=== PATIENT | female | born 1985 | race Caucasian/White ===

== ENCOUNTER 2016-06-07 14:18 | Emergency (ER) | payer OTHER ==
[2016-06-07 14:41] VITALS: BP 119/63
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
== END 2016-06-07 17:29 | disposition home or self-care (01) ==
LOC: UCCORT 14:18
DX: M54.12 Radiculopathy, cervical region (principal); F12.90 Cannabis use, unspecified, uncomplicated; Z87.891 Personal history of nicotine dependence
CPT/HCPCS: 99212; G0463

== ENCOUNTER 2016-09-23 09:05 | Emergency (ER) | payer OTHER ==
[2016-09-23 09:40] VITALS: BP 145/78
--- NOTE | 2016-09-23 10:08 | UC ---
Neck Pain HPI - HPI Summary HPI Summary: left side neck pain x 5 days sharp shooting pain , pain radiates to her right shoulder down to her right arm , + numbness and tingling no known injury - History of Current Complaint Chief Complaint: UCUpperExtremity Stated Complaint: RIGHT ARM PAIN Time Seen by Provider: 09/23/16 09:50 Hx Obtained From: Patient Hx Last Menstrual Period: 09/19/16 Timing: Constant Onset/Duration: Gradual Onset, Lasting Days - 5, Still Present Severity: Severe Location: Discrete At: - right neck , right shoulder and right arm Character: Sharp, Aching, Stiff, Spasmotic, Throbbing Aggravating Factors: Position Alleviating Factors: Nothing Associated Signs & Symptoms: Positive: Paresthesia. Negative: Negative, Swelling, Redness, Bruising, Fever, Nuchal Rigity, Weakness, Headache - Allergies/Home Medications Allergies/Adverse Reactions: Allergies Allergy/AdvReac Type Severity Reaction Status Date / Time No Known Allergies Allergy Verified 09/23/16 09:25 Home Medications: Home Medications Gabapentin CAP(*) [Neurontin 100 mg CAP(*)] 100 mg PO TID 09/23/16 [History Confirmed 09/23/16] Hydrocodone/APAP 5/300 (NF) [Vicodin 5 MG/300 MG(NF)] 1 tab PRN 09/23/16 [ History] Ibuprofen TAB* [Motrin TAB* 600 MG] 600 mg Q6HR PRN 09/23/16 [History Confirmed 09/23/16] ValACYclovir (*) [Valtrex 1 GM(*)] 1 gm PO DAILY 09/23/16 [History Confirmed 10/04] metFORMIN* [Glucophage 500 MG TAB *] 500 mg PO BID 09/23/16 [History Confirmed 09/23/16] traMADol TAB* [Ultram*] 50 mg BEDTIME 09/23/16 [History Confirmed 09/23/16] PMH/Surg Hx/FS Hx/Imm Hx Other History Of: Negative For: HIV, Hepatitis B, Hepatitis C - Surgical History Surgical History: Yes Surgery Procedure, Year, and Place: c section 02/01/13, right oopherectomy 2004 Other Surgical History: pilonidal cyst - Family History Known Family History: Positive: Hypertension, Diabetes Negative: Renal Disease, Blood Disorder - Social History Alcohol Use: None Substance Use Type: Marijuana Substance Use Comment - Amount & Last Used: 09/23/16 Smoking Status (MU): Former Smoker Type: Cigarettes Amount Used/How Often: 1 PPD Length of Time of Smoking/Using Tobacco: 17 Years Have You Smoked in the Last Year: Yes Household Exposure Type: Cigarettes - Immunization History Most Recent Influenza Vaccination: NONE Most Recent Tetanus Shot: UTD Most Recent Pneumonia Vaccination: N/A Review Of Systems Constitutional: Positive: Negative Skin: Positive: Negative Eyes: Positive: Negative ENT: Positive: Negative Respiratory: Positive: Negative Cardiovascular: Positive: Negative Neurological: Positive: Paresthesia - right arm All Other Systems Reviewed And Are Negative: Yes Physical Exam Triage Information Reviewed: Yes Appearance: Well-Appearing, Well-Nourished, Pain Distress Vital Signs: Initial Vital Signs Temp 99 F 09/23/16 09:30 Pulse 90 09/23/16 09:30 Resp 18 09/23/16 09:30 BP 145/78 09/23/16 09:30 Pulse Ox 99 09/23/16 09:30 Vital Signs Reviewed: Yes Eyes: Positive: Conjunctiva Clear ENT: Positive: Normal ENT inspection, Hearing grossly normal, Pharynx normal Neck: Positive: Tenderness @, Other: - decrease ROM on rotation to right Respiratory: Positive: Chest non-tender, Lungs clear, Normal breath sounds Cardiovascular: Positive: RRR, No Murmur, Pulses Normal Musculoskeletal: Positive: Strength Intact, ROM Intact, No Edema Neurological: Positive: Alert Neck Pain Course/Dx - Differential Dx/Diagnosis Provider Diagnoses: THORACIC OUTLET SYNDROME Discharge - Discharge Plan Condition: Stable Disposition: HOME Prescriptions: Naproxen [Naproxen DR 500 MG TAB] 500 mg PO BID #30 tab Patient Education Materials: Thoracic Outlet Syndrome (ED) Referrals: DOUGLAS Hensley [Primary Care Provider] - 7 Days Additional Instructions: rest , heating pads physical therapy 3 x per week x 4 weeks cont. with flexeril and naproxen 2 x per day
== END 2016-09-23 10:08 | disposition home or self-care (01) ==
LOC: UCCORT 09:05
DX: G54.0 Brachial plexus disorders (principal); F12.90 Cannabis use, unspecified, uncomplicated; Z87.891 Personal history of nicotine dependence
CPT/HCPCS: 99212; G0463

== ENCOUNTER 2017-09-13 12:00 | Emergency (ER) | payer OTHER ==
[2017-09-13 12:37] VITALS: BP 113/65
--- NOTE | 2017-09-13 12:50 | UC ---
Complaint Female HPI - HPI Summary HPI Summary: Patient is currently changing sexual partners and wishes to have HIV testing prior. Has a known history of genital herpes does occasionally get outbreaks does not take her preventative Valtrex - History Of Current Complaint Chief Complaint: UCSTDScreening Stated Complaint: PERSONAL Time Seen by Provider: 09/13/17 12:32 Hx Obtained From: Patient Hx Last Menstrual Period: 08/30/17 ?: No Pain Intensity: 0 Pain Scale Used: 0-10 Numeric - Allergies/Home Medications Allergies/Adverse Reactions: Allergies Allergy/AdvReac Type Severity Reaction Status Date / Time No Known Allergies Allergy Verified 09/13/17 12:34 Home Medications: Home Medications Oxybutynin TAB* [Ditropan TAB*] 5 mg PO TID 09/13/17 [History Confirmed 09/13/17 ] PARoxetine HCL TAB* [Paxil TAB*] 10 mg PO DAILY 09/13/17 [History Confirmed ] PMH/Surg Hx/FS Hx/Imm Hx Previously Healthy: No Psychological History: Anxiety Other History Of: Negative For: HIV, Hepatitis B, Hepatitis C - Surgical History Surgical History: Yes Surgery Procedure, Year, and Place: c section 02/01/13, right oopherectomy 2004 Other Surgical History: pilonidal cyst - Family History Known Family History: Positive: Hypertension, Diabetes Negative: Renal Disease, Blood Disorder - Social History Occupation: Unemployed Lives: With Family Alcohol Use: Occasionally Substance Use Type: Marijuana Substance Use Comment - Amount & Last Used: daily Smoking Status (MU): Heavy Every Day Tobacco Smoker Type: Cigarettes Amount Used/How Often: 1 PPD Length of Time of Smoking/Using Tobacco: 17 Years Have You Smoked in the Last Year: Yes Household Exposure Type: Cigarettes - Immunization History Most Recent Influenza Vaccination: NONE Most Recent Tetanus Shot: UTD Most Recent Pneumonia Vaccination: N/A Review of Systems Constitutional: Negative Skin: Negative Eyes: Negative ENT: Negative Respiratory: Negative Cardiovascular: Negative Gastrointestinal: Negative Genitourinary: Negative Motor: Negative Neurovascular: Negative Musculoskeletal: Negative Neurological: Negative Psychological: Negative Is Patient Immunocompromised?: No All Other Systems Reviewed And Are Negative: Yes Physical Exam Triage Information Reviewed: Yes Appearance: Well-Appearing, No Pain Distress, Well-Nourished Vital Signs: Initial Vital Signs Temp 97.6 F 09/13/17 12:31 Pulse 57 09/13/17 12:31 Resp 16 09/13/17 12:31 BP 113/65 09/13/17 12:31 Pulse Ox 100 09/13/17 12:31 Vital Signs Reviewed: Yes Eye Exam: Normal Eyes: Positive: Conjunctiva Clear ENT Exam: Normal ENT: Positive: Normal ENT inspection, Hearing grossly normal. Negative: Trismus , Muffled voice, Hoarse voice Dental Exam: Normal Neck exam: Normal Neck: Positive: Supple, Nontender, No Lymphadenopathy Respiratory Exam: Normal Respiratory: Positive: Chest non-tender, No respiratory distress, No accessory muscle use Cardiovascular Exam: Normal Cardiovascular: Positive: RRR, Pulses Normal, Brisk Capillary Refill Abdominal Exam: Normal Abdomen Description: Positive: Nontender, No Organomegaly, Soft. Negative: CVA Tenderness (R), CVA Tenderness (L) Bowel Sounds: Positive: Present Pelvic Exam: Positive: External Exam Normal, Speculum Exam Normal. Negative: No Cerv. Motion Tender, No Masses, Active Bleeding, Blood Musculoskeletal Exam: Normal Musculoskeletal: Positive: Strength Intact, ROM Intact, No Edema Neurological Exam: Normal Neurological: Positive: Alert, Muscle Tone Normal Psychological Exam: Normal Psychological: Positive: Normal Response To Family Skin Exam: Normal Complaint Female Dx - Course Course Of Treatment: We will call you if any B test results require treatment. She call us in 3-5 days for the test results just for completeness. Please continue to use a condom. I would encourage her to use her Valtrex regularly to help decrease outbreaks in the chance of spreading virus - Differential Dx/Diagnosis Provider Diagnoses: Possible STD exposure Discharge - Sign-Out/Discharge Documenting (check all that apply): Discharge/Admit/Transfer - Discharge Plan Condition: Stable Disposition: HOME Patient Education Materials: Safe Sex (ED) Referrals: DOUGLAS Hensley [Primary Care Provider] - If Needed Additional Instructions: Lily, We will call you if any of your test results are positive, that means needs treatment. You can call us in 3-5 days for your test results. Follow-up with your regular [facility] DIPPER for routine Pap smears and return for any problems. - Billing Disposition and Condition Condition: STABLE Disposition: HOME
--- NOTE | 2017-09-16 08:01 | UC ---
- Progress Note Progress Note: Positive Gardnerella. I have sent Rx for flagyl 500mg po bid. Discharge - Sign-Out/Discharge Documenting (check all that apply): Post-Discharge Follow Up - Discharge Plan Condition: Stable Disposition: HOME Patient Education Materials: Safe Sex (ED) Referrals: DOUGLAS Hensley [Primary Care Provider] - If Needed Additional Instructions: Lily, We will call you if any of your test results are positive, that means needs treatment. You can call us in 3-5 days for your test results. Follow-up with your regular [employer]CH[employer] for routine Pap smears and return for any problems. - Billing Disposition and Condition Condition: STABLE Disposition: HOME
== END 2017-09-13 13:16 | disposition home or self-care (01) ==
LOC: UCCORT 12:00
DX: Z11.4 Encounter for screening for human immunodeficiency virus [HIV] (principal); N76.0 Acute vaginitis; B96.89 Other specified bacterial agents as the cause of diseases classified elsewhere; F41.9 Anxiety disorder, unspecified; F17.210 Nicotine dependence, cigarettes, uncomplicated
CPT/HCPCS: 36415; 81003; 84702; 86592; 86703; 86706; 86803; 87340; 87480; 87491; 87510; 87591; 87661; 99212; G0463

== ENCOUNTER 2017-09-30 11:18 | Emergency (ER) | payer OTHER ==
[2017-09-30 11:31] VITALS: BP 124/70
--- NOTE | 2017-09-30 11:55 | RAD ---
HISTORY: fevers, cough, 10 days, eval for pneumonia. COMPARISONS: None VIEWS: 4: Frontal dual-energy and lateral views of the chest. FINDINGS: CARDIOMEDIASTINAL SILHOUETTE: The cardiomediastinal silhouette is normal. AIRAM: The airam are normal. PLEURA: The costophrenic angles are sharp. No pleural abnormalities are noted. LUNG PARENCHYMA: The lungs are clear. ABDOMEN: The upper abdomen is clear. There is no subphrenic gas. BONES AND SOFT TISSUES: No bone or soft tissue abnormalities are noted. OTHER: None. IMPRESSION: NO ACTIVE CARDIOPULMONARY DISEASE.
--- NOTE | 2017-09-30 11:56 | UC ---
Respiratory Complaint HPI - HPI Summary HPI Summary: This started with Sore throat and has turned into cough and congestion. She says it is dry. There have been scatterred fevers. No hemoptysis. No known lung disease except childhood asthma. - History of Current Complaint Chief Complaint: UCRespiratory Stated Complaint: RUNNY NOSE/SINUS/COUGH Time Seen by Provider: 09/30/17 11:26 Hx Obtained From: Patient Hx Last Menstrual Period: 09/23/17 Onset/Duration: Gradual Onset, Lasting Days Timing: Constant Severity Initially: Moderate Severity Currently: Moderate Pain Intensity: 2 Character: Cough: Nonproductive Aggravating Factors: Deep Breaths, Recumbent Position Alleviating Factors: Upright Position, Spontaneous Resolution Associated Signs And Symptoms: Positive: Dyspnea, Fever, URI, Nasal Congestion. Negative: Calf Pain, Calf Swelling - Allergies/Home Medications Allergies/Adverse Reactions: Allergies Allergy/AdvReac Type Severity Reaction Status Date / Time No Known Allergies Allergy Verified 09/13/17 12:34 Home Medications: Home Medications Ibuprofen 1,000 mg PO Q8HR 09/30/17 [History Confirmed 09/30/17] PMH/Surg Hx/FS Hx/Imm Hx Previously Healthy: No - smoker. Other History Of: Negative For: HIV, Hepatitis B, Hepatitis C - Surgical History Surgical History: Yes Surgery Procedure, Year, and Place: c section 02/01/13, right oopherectomy 2004 Other Surgical History: pilonidal cyst - Family History Known Family History: Positive: Hypertension, Diabetes Negative: Renal Disease, Blood Disorder - Social History Alcohol Use: None Substance Use Type: Marijuana Substance Use Comment - Amount & Last Used: OCCASSIONALLY, 09/28/17 Smoking Status (MU): Heavy Every Day Tobacco Smoker Type: Cigarettes Amount Used/How Often: 1 PPD Length of Time of Smoking/Using Tobacco: 17 Years Have You Smoked in the Last Year: Yes Household Exposure Type: Cigarettes - Immunization History Most Recent Influenza Vaccination: NONE Most Recent Tetanus Shot: UTD Most Recent Pneumonia Vaccination: N/A Review of Systems ENT: Sore Throat, Sinus Congestion Respiratory: Cough All Other Systems Reviewed And Are Negative: Yes Physical Exam Triage Information Reviewed: Yes Appearance: Well-Appearing - Non toxic. Occassional dry cough., No Pain Distress , Well-Nourished Vital Signs: Initial Vital Signs Temp 97.8 F 09/30/17 11:26 Pulse 89 09/30/17 11:26 Resp 17 09/30/17 11:26 BP 124/70 09/30/17 11:26 Pulse Ox 100 09/30/17 11:26 Vital Signs Reviewed: Yes Eyes: Positive: Conjunctiva Clear ENT: Positive: Normal ENT inspection, Pharynx normal, Nasal congestion, TMs normal, Uvula midline. Negative: TM bulging, TM dull, TM red, Tonsillar swelling, Tonsillar exudate, Trismus, Muffled voice, Sinus tenderness Neck: Positive: Supple, Nontender, No Lymphadenopathy Respiratory: Positive: Chest non-tender, Lungs clear, Normal breath sounds, No respiratory distress, No accessory muscle use, Wheezing - scatterred wheezing throughout.. Negative: Respiratory distress, Decreased breath sounds, Accessory muscle use, Crackles, Rhonchi, Stridor Cardiovascular: Positive: No Murmur, Pulses Normal, Brisk Capillary Refill Abdomen Description: Positive: No Organomegaly, Soft. Negative: Distended, Guarding Musculoskeletal: Positive: Strength Intact, ROM Intact, No Edema Neurological: Positive: Alert, Muscle Tone Normal. Negative: Fatigued Psychological: Positive: Age Appropriate Behavior Skin: Negative: rashes UC Diagnostic Evaluation - Laboratory O2 Sat by Pulse Oximetry: 100 Respiratory Course/Dx - Course Course Of Treatment: No signs of pneumonia. X ray reviewed and normal. This is c /w reactive airway disease. - Differential Dx/Diagnosis Provider Diagnoses: acute bronchitis. URI. Discharge - Sign-Out/Discharge Documenting (check all that apply): Discharge/Admit/Transfer - Discharge Plan Condition: Good Disposition: HOME Prescriptions: Albuterol Sulfate [Proventil Hfa] 6.7 gm IH Q2HR PRN #1 [email or web address] PRN Reason: Cough Azithromyxin QUAN (NF) [Z-Quan (Zithromax) 250 mg tabs #6] 2 tab PO .TODAY, THEN 1 DAILY #6 tab GuaiFENesin DM* [Robitussin DM*] 10 ml PO Q6H PRN #120 ml PRN Reason: Cough methylPREDNISolone [Medrol Dosepak 4 MG*] 4 mg PO .SEE QUAN INSTRUCTION #21 tab Patient Education Materials: Upper Respiratory Infection (ED) Referrals: DOUGLAS Hensley [Primary Care Provider] - Additional Instructions: Start the medrol dose pack, cough medicine and inhaler. This should make you better. If not, somewhat better in 4 days then start z pack. - Billing Disposition and Condition Condition: GOOD Disposition: Home
== END 2017-09-30 11:54 | disposition home or self-care (01) ==
LOC: UCCORT 11:18
DX: J20.9 Acute bronchitis, unspecified (principal); J06.9 Acute upper respiratory infection, unspecified; F17.210 Nicotine dependence, cigarettes, uncomplicated
CPT/HCPCS: 71046; 99212; G0463

== ENCOUNTER 2017-10-22 20:07 | Emergency (ER) | payer OTHER ==
[2017-10-22 20:21] VITALS: BP 122/67
[2017-10-22] MEDS ORDERED: traMADol TAB* 50 MG PO ONE (20:53)
--- NOTE | 2017-10-22 20:55 | UC ---
Shoulder Pain HPI - HPI Summary HPI Summary: acute exacerbation of chronic right shoulder pain---has a dx of thoracic outlet syndrome, stopped taking gabapentin because arm was feeling better---has an appointment with Dr. Tucker on October 30, 2017 - History of Current Complaint Chief Complaint: UCUpperExtremity Stated Complaint: RIGHT ARM PAIN Time Seen by Provider: 10/22/17 20:41 Hx Obtained From: Patient Hx Last Menstrual Period: 10/08/17 ?: No Onset/Duration: Sudden Onset, Lasting Weeks, Worse Since - past couple of days Timing: Constant Pain Intensity: 6 Pain Scale Used: 0-10 Numeric Character: Throbbing, Unable to Describe - neuropathic pain down right arm Aggravating Factor(s): Movement Alleviating Factor(s): Nothing Associated Signs And Symptoms: Positive: Numbness/Tingling Related History: Dominant Hand Right - Allergies/Home Medications Allergies/Adverse Reactions: Allergies Allergy/AdvReac Type Severity Reaction Status Date / Time No Known Allergies Allergy Verified 10/22/17 20:21 PMH/Surg Hx/FS Hx/Imm Hx Previously Healthy: Yes - outlet syndrome Respiratory History: Asthma - mild intermittent Psychological History: Depression Other History Of: Negative For: HIV, Hepatitis B, Hepatitis C - Surgical History Surgical History: Yes Surgery Procedure, Year, and Place: c section 02/01/13, right oopherectomy 2004 Other Surgical History: pilonidal cyst - Family History Known Family History: Positive: Hypertension, Diabetes Negative: Renal Disease, Blood Disorder - Social History Occupation: Unemployed Lives: With Family Alcohol Use: None Substance Use Type: Marijuana Substance Use Comment - Amount & Last Used: OCCASSIONALLY, 09/28/17 Smoking Status (MU): Heavy Every Day Tobacco Smoker Type: Cigarettes Amount Used/How Often: 1 PPD Length of Time of Smoking/Using Tobacco: 17 Years Have You Smoked in the Last Year: Yes Household Exposure Type: Cigarettes - Immunization History Most Recent Influenza Vaccination: NONE Most Recent Tetanus Shot: UTD Most Recent Pneumonia Vaccination: N/A Review of Systems Constitutional: Negative Skin: Negative Eyes: Negative ENT: Negative Respiratory: Negative Cardiovascular: Negative Gastrointestinal: Negative Genitourinary: Negative Motor: Negative Neurovascular: Negative Musculoskeletal: Arthralgia - right arm, Other: - neurolalgia--right arm Neurological: Negative Psychological: Negative Is Patient Immunocompromised?: No All Other Systems Reviewed And Are Negative: Yes Physical Exam Triage Information Reviewed: Yes Appearance: Well-Nourished, Ill-Appearing - older than stated age, Pain Distress Vital Signs: Initial Vital Signs Temp 98.0 F 10/22/17 20:15 Pulse 82 10/22/17 20:15 Resp 16 10/22/17 20:15 BP 122/67 10/22/17 20:15 Pulse Ox 100 10/22/17 20:15 Vital Signs Reviewed: Yes Eye Exam: Normal Eyes: Positive: Conjunctiva Clear ENT Exam: Normal ENT: Positive: Normal ENT inspection, Hearing grossly normal. Negative: Trismus , Muffled voice Dental Exam: Normal Neck exam: Normal Neck: Positive: Supple, Nontender Respiratory Exam: Normal Respiratory: Positive: Chest non-tender, Lungs clear, Normal breath sounds, No respiratory distress, No accessory muscle use Cardiovascular Exam: Normal Cardiovascular: Positive: RRR, No Murmur, Pulses Normal, Brisk Capillary Refill Musculoskeletal Exam: Other Musculoskeletal: Positive: No Edema, Strength Limited @ - right arm, ROM Limited @ - right arm Neurological Exam: Normal Neurological: Positive: Alert, Muscle Tone Normal Psychological Exam: Normal Skin Exam: Normal Shoulder Course/Dx - Course Assessment/Plan: restart neurontin, ultram follow with Dr. Tucker as planned - Differential Dx/Diagnosis Provider Diagnoses: right thorasic outlet syndrome Discharge - Sign-Out/Discharge Documenting (check all that apply): Discharge/Admit/Transfer - Discharge Plan Condition: Stable Disposition: HOME Prescriptions: Gabapentin [Neurontin] 100 mg PO SEE INSTRUCTIONS #45 capsule Tramadol HCl [Ultram] 50 mg PO Q6H PRN #20 tablet MDD 4 PRN Reason: pain Patient Education Materials: Gabapentin (By mouth), Thoracic Outlet Syndrome ( ED) Referrals: Ellen Tucker MD [Primary Care Provider] - 10/30/17 9:00 am - Billing Disposition and Condition Condition: STABLE Disposition: Home
== END 2017-10-22 21:06 | disposition home or self-care (01) ==
LOC: UCCORT 20:07
DX: G54.0 Brachial plexus disorders (principal); F17.210 Nicotine dependence, cigarettes, uncomplicated
CPT/HCPCS: 99212; A9270-GY; G0463

== ENCOUNTER 2018-05-13 12:09 | Emergency (ER) | payer OTHER ==
[2018-05-13 12:34] VITALS: BP 114/64
--- NOTE | 2018-05-13 13:27 | UC ---
Respiratory Complaint HPI - HPI Summary HPI Summary: Cough , congestion, and decr. appetite in a 7mo. pt. she does smoke. cough is keeping her up. + sick contacts. - History of Current Complaint Chief Complaint: UCRespiratory Stated Complaint: CONGESTION,NAUSEA Time Seen by Provider: 05/13/18 13:15 Hx Obtained From: Patient Hx Last Menstrual Period: 10/08/17 Pain Intensity: 4 Pain Scale Used: 0-10 Numeric - Allergies/Home Medications Allergies/Adverse Reactions: Allergies Allergy/AdvReac Type Severity Reaction Status Date / Time No Known Allergies Allergy Verified 05/13/18 12:34 PMH/Surg Hx/FS Hx/Imm Hx - Additional Past Medical History Additional PMH: CURRENTLY Other History Of: Negative For: HIV, Hepatitis B, Hepatitis C - Surgical History Surgical History: Yes Surgery Procedure, Year, and Place: c section 02/01/13, right oopherectomy 2004 Other Surgical History: pilonidal cyst - Family History Known Family History: Positive: Hypertension, Diabetes Negative: Renal Disease, Blood Disorder - Social History Alcohol Use: None Substance Use Type: Marijuana Substance Use Comment - Amount & Last Used: OCCASSIONALLY, 09/28/17 Smoking Status (MU): Heavy Every Day Tobacco Smoker Type: Cigarettes Amount Used/How Often: 1/4 PPD Length of Time of Smoking/Using Tobacco: 17 Years Have You Smoked in the Last Year: Yes Household Exposure Type: Cigarettes - Immunization History Most Recent Influenza Vaccination: NONE Most Recent Tetanus Shot: UTD Most Recent Pneumonia Vaccination: N/A Review of Systems All Other Systems Reviewed And Are Negative: Yes Constitutional: Positive: Fatigue. Negative: Fever, Chills Skin: Negative: Rash, Bruising ENT: Positive: Nasal Discharge, Sinus Congestion. Negative: Sore Throat, Ear Ache, Sinus Pain/Tenderness Respiratory: Positive: Cough. Negative: Shortness Of Breath Cardiovascular: Positive: Negative Gastrointestinal: Positive: Other - decr. appetite. Negative: Vomiting, Diarrhea Neurological: Negative: Headache Physical Exam Triage Information Reviewed: Yes Appearance: Well-Appearing Vital Signs: Initial Vital Signs Temp 97.1 F 05/13/18 12:28 Pulse 95 05/13/18 12:28 Resp 18 05/13/18 12:28 BP 114/64 05/13/18 12:28 Pulse Ox 99 05/13/18 12:28 Vital Signs Reviewed: Yes ENT: Positive: Pharynx normal, TMs normal, Uvula midline. Negative: Sinus tenderness Dental: Positive: Other: - no teeth or dentures. Neck: Positive: No Lymphadenopathy Respiratory: Positive: Wheezing. Negative: No respiratory distress, Accessory muscle use, Crackles, Rhonchi, Stridor Cardiovascular Exam: Normal Abdomen Description: Positive: Other: - abdomen Neurological: Positive: Alert Skin: Negative: Rashes UC Diagnostic Evaluation - Laboratory O2 Sat by Pulse Oximetry: 99 Respiratory Course/Dx - Course Course Of Treatment: smoker with cough acute. No resp. distress but did note wheezing on exam. Albuterol given. No pneumonia. vitals good. - Differential Dx/Diagnosis Differential Diagnosis/HQI/PQRI: Asthma, Bronchitis, Sinusitis Provider Diagnosis: Bronchitis Discharge - Sign-Out/Discharge Documenting (check all that apply): Patient Departure All imaging exams completed and their final reports reviewed: No Studies - Discharge Plan Condition: Good Disposition: HOME Prescriptions: Albuterol HFA INHALER* [Ventolin HFA Inhaler*] 2 puff INH Q4H PRN #1 mdi PRN Reason: Cough Patient Education Materials: Acute Bronchitis (ED) Referrals: Ellen Tucker MD [Primary Care Provider] - Additional Instructions: If no improvement please follow up with your main doctor. It's always recommended to NOT smoke while . Feel better. - Billing Disposition and Condition Condition: GOOD Disposition: Home
== END 2018-05-13 13:30 | disposition home or self-care (01) ==
LOC: UCCORT 12:09
DX: J40 Bronchitis, not specified as acute or chronic (principal); O26.893 Other specified pregnancy related conditions, third trimester; O99.333 Smoking (tobacco) complicating pregnancy, third trimester; Z3A.00 Weeks of gestation of pregnancy not specified
CPT/HCPCS: 99212; G0463

== ENCOUNTER 2018-07-13 06:10 | Inpatient (IN) | payer OTHER ==
[2018-07-11 14:44] LABS: ABS Basophils 0.1 10^3/ul (0-0.2); ABS Eosinophils 0.1 10^3/ul (0-0.6); ABS Monocytes 0.6 10^3/ul (0-0.8); ABS Neutrophils 9.8 10^3/ul (1.5-7.7); ABS Nucleated RBC 0 10^3/ul; Eosinophil % 0.4 %; Hematocrit 37 % (33-41); Hemoglobin 12.1 g/dL (12.0-16.0); Lymphocyte % 22.5 %; Mean Corpuscular HGB Conc 33 g/dL (31-36); Mean Corpuscular Hemoglobin 30 pg (27-31); Mean Corpuscular Volume 90 fL (80-97); Mean Platelet Volume 10.8 fL (7.4-10.4); Nucleated Red Blood Cells % 0; Platelet Count 301 10^3/uL (150-450); Red Blood Count 4.06 10^6 /uL (3.70-4.87); Red Cell Distribution Width 14 % (10.5-15); White Blood Count 13.5 10^3/uL (3.5-10.8)
--- NOTE | 2018-07-12 23:00 | HP ---
General Information - Reason for Visit at 39 weeks with prior section, desires repeat and sterilization via bilateral tubal ligation. - General Information Maternal Age: 32 Grav: 5 Para: 2 SAB: 2 IEA: 0 Estimated Due Date: 07/19/18 Determined By: Early Ultrasound Gestational Age in Weeks/Days: 39 Maternal Blood Type and Rh: O Positive - Results this Serology/RPR Result: Non-Reactive Rubella Result: Immune HBsAg Result: Negative HIV Result: Negative GBS Culture Result: Positive Past Medical History Delivery History: Hx C/Section, See Records Pertinent Past Medical History: See Records Past Medical History Comment: Anxiety/depression HSV II Cigarette smoker 1/2 pk/day THC user Pertinent Past Surgical History: See Records Pertinent Family History: See Records - Antepartal Records Antepartal Records: Reviewed, Complicated by: - Prior section , tobacco use disorder, BMI 31 Review of Systems Constitutional: Comfortable CV Complaint: No Respiratory: Shortness of Breath: No Gastrointestinal: No Nausea/Vomiting, Normal Bowel Movement Genitourinary: No Dysuria, No Bleeding, No Leaking Fluid Musculoskeletal: No Complaint, No Epigastric Pain Neurological: No Headache, No Visual Changes Movement: Normal Exam Allergies/Adverse Reactions: Allergies No Known Allergies Allergy (Verified 07/11/18 14:16) Temp 98.6 BP 122/72 P 72 RR 18 Lab Values - Entire Visit: Laboratory Tests 07/11/18 07/11/18 13:05 13:05 WBC 13.5 H RBC 4.06 Hgb 12.1 Hct 37 MCV 90 MCH 30 MCHC 33 RDW 14 Plt Count 301 MPV 10.8 H Neut % (Auto) 72.5 Lymph % (Auto) 22.5 [place] % (Auto) 4.2 Eos % (Auto) 0.4 Baso % (Auto) 0.4 Absolute Neuts (auto) 9.8 H Absolute Lymphs (auto) 3.0 Absolute Monos (auto) 0.6 Absolute Eos (auto) 0.1 Absolute Basos (auto) 0.1 Absolute Nucleated RBC 0 Nucleated RBC % 0 Blood Type O Positive Antibody Screen Negative - Measurements Height: 5 ft 6 in Weight: 201 lb Weight in lbs: 201.442983 Body Mass Index (BMI): 32.4 Pre- Weight: 190 lb Weight Gained This : 11 lbs and 0 ozs - Exam Breast: Breast Exam Deferred CVA: No CVA Tenderness Extremities: No Edema Heart: Normal Rhythm/Heart Sounds HEENT: No Significant Findings Lungs: Clear Bilaterally Rectal: Rectal Exam Deferred Reflexes: DTR 2+ Thyroid: No Thyromegaly - Abdominal Exam Abdomen Exam: Non-Tender, Fundal Height Consistent with Dates - Ultrasound/Biophysical Profile Ultrasound Status: Not Done Targeted Exam Findings See L&D Outpatient Visit Provider Note for Findings: N/A Cervical Exam: Closed Presenting Part: Vertex EFM Findings - External Monitor Findings Baseline Heart Rate: 140 Contractions: None Assessment/Plan - Assessment 39 weeks, prior , desires sterilization. - Obstetrical Risk Factors Obstetrical Risk Factors: Obesity, Previous C/Section in Labor - Plan Plan: C/S Delivery - Date/Time of Admission Date of Admission: 07/13/18 Time of Admission: 07:00
[~2018-07-13 06:10] MED LIST: Buffered Lidocaine 1% SYRIN* 1 ML/SYRINGE INTRADERM ONE; Lactated Ringers 1000 ML Bag* 1,000 ML IV SCH; Sodium Citrate/Citric Acid* 15 ML UDC PO ONE
[2018-07-13] MEDS ORDERED: Lactated Ringers 1000 ML Bag* 1,000 ML IV SCH (07:00)
[2018-07-13] MEDS ORDERED: Lactated Ringers 1000 ML Bag* 1,000 ML IV ONE (07:00)
[2018-07-13] MEDS ORDERED: ceFOXitin 2 GM IVPREMIX* 2 GM/50 ML BAG IVPB ONE (07:00)
[2018-07-13] MEDS ORDERED: Morphine PF AMP (0.5MG/ML)* 5 MG/10 ML AMP ONE (07:30)
[2018-07-13] MEDS ORDERED: Bupivacaine-MPF SPINAL* 7.5 MG/ML - 2ML AMP ONE (07:31)
[2018-07-13] MEDS ORDERED: Ondansetron INJ* 2 MG/ML VIAL ONE (08:49)
[2018-07-13] MEDS ORDERED: OXYTOCIN* 10 UNITS/ML 1 ML VIAL ONE (08:49)
[2018-07-13] MEDS ORDERED: Naloxone* 0.4 MG/ML 1 ML VIAL IV PRN (09:16)
[2018-07-13] MEDS ORDERED: Ondansetron INJ* 2 MG/ML VIAL IV PRN (09:17)
[2018-07-13] MEDS ORDERED: oxyCODONE/Acetamin 5/325 MG* TAB PO PRN ×3 (09:17→23:59)
[2018-07-13] MEDS ORDERED: Nalbuphine* 10 MG/ML 1 ML VIAL IV PRN (09:17)
[2018-07-13] MEDS ORDERED: Witch Hazel PAD* JAR TOPICAL PRN (09:32)
[2018-07-13] MEDS ORDERED: Dibucaine 1% 28.35 GM TUBE PR PRN (09:32)
[2018-07-13] MEDS ORDERED: Glycerin ADULT SUPP PR PRN (09:32)
[2018-07-13] MEDS: Ibuprofen TAB* 400 MG PO SCH ×3 (12:00→21:00)
[2018-07-13] MEDS: Nicotine PATCH 14 MG/24 HR* PATCH TRANSDERM SCH (12:00)
[2018-07-13] MEDS: Lactated Ringers 1000 ML Bag* 1,000 ML IV SCH ×2 (12:00→14:33)
[2018-07-13] MEDS: Simethicone TAB* 80 MG TAB.CHEW PO SCH ×3 (12:04→21:15)
[2018-07-13] MEDS: Docusate CAP* 100 MG PO SCH ×2 (15:01→21:15)
[2018-07-13] MEDS: Acetaminophen TAB* 325 MG PO PRN ×2 (15:01→21:15)
[2018-07-13] MEDS: Nicotine Patch Removal NOTE PATCH OFF SCH (21:15)
[2018-07-13] MEDS ORDERED: Zolpidem TAB* 5 MG PO PRN (23:59)
[2018-07-14] MEDS: Acetaminophen TAB* 325 MG PO PRN ×4 (01:24→18:01)
[2018-07-14] MEDS: Simethicone TAB* 80 MG TAB.CHEW PO SCH ×4 (08:42→20:27)
[2018-07-14] MEDS: Docusate CAP* 100 MG PO SCH ×3 (08:42→20:27)
[2018-07-14] MEDS: Ibuprofen TAB* 600 MG PO PRN ×3 (08:42→20:27)
[2018-07-14] MEDS: PARoxetine HCL TAB* 10 MG PO SCH (08:42)
[2018-07-14 09:41] LABS: ABS Basophils 0.1 10^3/ul (0-0.2); ABS Eosinophils 0.1 10^3/ul (0-0.6); ABS Lymphocytes 2.4 10^3/ul (1.0-4.8); ABS Monocytes 0.6 10^3/ul (0-0.8); ABS Neutrophils 8.3 10^3/ul (1.5-7.7); ABS Nucleated RBC 0 10^3/ul; Eosinophil % 0.7 %; Hematocrit 29 % (33-41); Hemoglobin 9.6 g/dL (12.0-16.0); Lymphocyte % 20.9 %; Mean Corpuscular HGB Conc 33 g/dL (31-36); Mean Corpuscular Hemoglobin 30 pg (27-31); Mean Corpuscular Volume 90 fL (80-97); Mean Platelet Volume 10.2 fL (7.4-10.4); Nucleated Red Blood Cells % 0; Platelet Count 253 10^3/uL (150-450); Red Cell Distribution Width 15 % (10.5-15); White Blood Count 11.5 10^3/uL (3.5-10.8)
[2018-07-14] MEDS: Ferrous Gluconate TAB* 324 MG TAB PO SCH ×2 (11:20→20:27)
[2018-07-14] MEDS: Nicotine PATCH 14 MG/24 HR* PATCH TRANSDERM SCH (14:07)
[2018-07-14 17:54] LABS: Barbiturates Urine Screen None Detected (None Detect); Benzodiazepine Urine Screen None Detected (None Detect); Urine Cannabinoids Screen Presumptive Positive (None Detect)
--- NOTE | 2018-07-15 00:03 | OP ---
OPERATIVE REPORT: DATE OF OPERATION: 07/13/18 - Inpatient, [place] [facility] [facility] DATE OF : 83 SURGEON: Michael Ch MD. METHODS STUDY ANALYST SURGEON: Dr. Pichardo. ANESTHESIOLOGIST: Yung Perez DO ANESTHESIA: Spinal. PRE-OP DIAGNOSIS: at 39 weeks, prior section. The patient desires permanent sterilization. POST-OP DIAGNOSIS: at 39 weeks, prior section. The patient desires permanent sterilization. OPERATIVE PROCEDURE: Repeat low-transverse section and bilateral tubal ligation via modified [place] method. ESTIMATED BLOOD LOSS: 600 cc. SPECIMEN SENT TO PATHOLOGY: Portions of left and right fallopian tube. FLUIDS: She received 1800 cc of IV crystalloid fluid. Her urine output was clear. FINDINGS: Delivery of a female infant with a weight of 6 pounds 8 ounces with Apgars of 8 and 9. The uterus, adnexa were within normal limits. The placenta was grossly intact with a 3-vessel cord noted. The bowel and bladder were also within normal limits. There were no complications. DESCRIPTION OF PROCEDURE: The patient was taken to the operating room where she was identified. She was placed on operating room table where spinal anesthetic was obtained without difficulty. She was placed in the supine position with a leftward tilt, prepped and draped in a normal sterile fashion. A Pfannenstiel skin incision was made with a knife and carried through to the underlying layer of fascia. The fascia was nicked in the midline and extended laterally with curved Landry scissors. The fascia was then grasped superiorly and inferiorly with Riri clamps and dissected out sharply from the rectus muscle. The rectus muscles were in the midline bluntly. The peritoneum was identified, grasped with pickups, and entered sharply with Metzenbaum scissors and extended superiorly and inferiorly sharply. A bladder blade was inserted into the patient's abdomen. A bladder flap was created using Metzenbaum scissors, over which a bladder blade was then reinserted. A low-transverse incision was made with the knife, extended laterally with bandage scissors. The amnion sac was ruptured. The amnion sac fluid contained meconium. The infant's head was then grasped and delivered atraumatically. The nose and mouth were suctioned. The rest of the 's body was then delivered. The cord was clamped and cut and the was handed off to awaiting sign maintenance. Cord bloods were obtained. The placenta was removed manually. The uterus was then exteriorized, cleared off all clot and debris using moist laparotomy sponges. The uterine incision was then closed using 0-Polysorb suture in a running locked fashion with a second imbricating layer of 0- Polysorb suture. At this point, bilateral tubal ligation was performed using a modified Mathieu method with 3-0 Polysorb sutures. After the tubal ligation, the uterus was then returned to the patient's abdomen. The gutters were then cleared of all clots and debris using moist laparotomy sponges. All the sponges were removed from the patient's abdomen. The peritoneum was then closed using 3-0 Polysorb suture in a running fashion. The fascia was then closed using 0 Polysorb suture in a running fashion. Shaneka's layer was then closed using 3-0 Polysorb suture interrupted stitches and the skin was closed with a 4-0 Monocryl subcuticular stitch. The patient tolerated the procedure well. Sponge, lap, and needle counts were correct x2. She was then transferred to the recovery room in stable condition. [id number]/[facility] #: [id number] GR[facility] SQUARE HOSPITALErvin
[2018-07-15 08:20] VITALS: BP 120/64
[2018-07-15] MEDS: Simethicone TAB* 80 MG TAB.CHEW PO SCH (08:33)
[2018-07-15] MEDS: Ibuprofen TAB* 600 MG PO PRN (08:34)
[2018-07-15] MEDS: Docusate CAP* 100 MG PO SCH (08:34)
[2018-07-15] MEDS: Ferrous Gluconate TAB* 324 MG TAB PO SCH (08:34)
[2018-07-15] MEDS: Nicotine Patch Removal NOTE PATCH OFF SCH (08:40)
[2018-07-15] MEDS: Nicotine PATCH 14 MG/24 HR* PATCH TRANSDERM SCH (08:41)
[2018-07-15] MEDS: PARoxetine HCL TAB* 10 MG PO SCH (08:51)
== END 2018-07-15 12:07 | disposition home or self-care (01) | DRG 540 ==
LOC: MCHOB 06:10
PROVIDERS: ADMIT Obstetrics & Gynecology; ATTEND Obstetrics & Gynecology
PROC: 4A1HXCZ Monitoring of Products of Conception, Cardiac Rate, External Approach (ICD-10-PCS; 2018-07-13)
PROC: 0UB70ZZ Excision of Bilateral Fallopian Tubes, Open Approach (ICD-10-PCS; 2018-07-13)
PROC: 10D00Z1 Extraction of Products of Conception, Low, Open Approach (ICD-10-PCS; principal; 2018-07-13 07:45)
DX: O34.211 Maternal care for low transverse scar from previous cesarean delivery (principal); O99.324 Drug use complicating childbirth; O99.824 Streptococcus B carrier state complicating childbirth; O99.334 Smoking (tobacco) complicating childbirth; F17.210 Nicotine dependence, cigarettes, uncomplicated; F12.90 Cannabis use, unspecified, uncomplicated; Z3A.39 39 weeks gestation of pregnancy; Z37.0 Single live birth; Z30.2 Encounter for sterilization; O90.81 Anemia of the puerperium; O77.0 Labor and delivery complicated by meconium in amniotic fluid
CPT/HCPCS: 36415; 80307; 85025; 86850; 86900; 86901; 88302; A9270-GY; J0694; J2405; J2590

== ENCOUNTER 2018-12-05 12:58 | Emergency (ER) | payer OTHER ==
[2018-12-05 13:12] VITALS: BP 122/70
--- NOTE | 2018-12-05 13:19 | UC ---
Eye Complaint HPI - HPI Summary HPI Summary: L EYE LID PAIN AND TENDERNESS A FEW DAYS AGO AFTER 'POPPING ' A STYE. L UPPER LID HAS BECOMING SWOLLEN AND MORE PAINFUL W/ SOME DISCHARGE. DENIES VISION CHANGES OR FEVER. DENIES PAIN W/ EYE MOVEMENT. ALSO FEELS LIKE HER CASTELLANOS'S PALSY IS ACTIVATING B/C SHE FEELS THROBBING. 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 - History of Current Complaint Chief Complaint: UCEye Stated Complaint: LEFT EYE Time Seen by Provider: 12/05/18 13:03 Hx Obtained From: Patient Hx Last Menstrual Period: 12/02/18 Onset/Duration: Sudden Onset Pain Intensity: 4 Pain Scale Used: 0-10 Numeric Location of Injury: Eye Lid (upper) Character: Sharp, Throbbing Aggravating Factor(s): Nothing Alleviating Factor(s): Nothing Associated Signs And Symptoms: Positive: Drainage (Purulent). Negative: Photophobia, Vision Impairment Right, Vision Impairment Left, Fever - Allergies/Home Medications Allergies/Adverse Reactions: Allergies Allergy/AdvReac Type Severity Reaction Status Date / Time No Known Allergies Allergy Verified 12/05/18 13:07 Home Medications: Home Medications busPIRone TAB* [Buspar TAB *] 15 mg PO TID 12/05/18 [History Confirmed 12/05/18] PMH/Surg Hx/FS Hx/Imm Hx Previously Healthy: Yes Neurological History: Other - CASTELLANOS'S PALSY Other History Of: Negative For: HIV, Hepatitis B, Hepatitis C - Surgical History Surgical History: Yes Surgery Procedure, Year, and Place: c section 02/01/13, right oopherectomy 2004 Other Surgical History: pilonidal cyst - Family History Known Family History: Positive: Hypertension, Diabetes Negative: Renal Disease, Blood Disorder - Social History Alcohol Use: None Substance Use Type: Marijuana Substance Use Comment - Amount & Last Used: DAILY Smoking Status (MU): Heavy Every Day Tobacco Smoker Type: Cigarettes Amount Used/How Often: 1/2 PPD Length of Time of Smoking/Using Tobacco: 17 Years Have You Smoked in the Last Year: Yes Household Exposure Type: Cigarettes - Immunization History Most Recent Influenza Vaccination: 2019 Most Recent Tetanus Shot: 2019 Most Recent Pneumonia Vaccination: N/A Review of Systems All Other Systems Reviewed And Are Negative: Yes Constitutional: Negative: Fever Skin: Negative: Rash Eyes: Positive: Other - L EYE LID PAIN/SWELLING. Negative: Blurred Vision, Diplopia, Drainage, Eye Redness, Photophobia ENT: Negative: Sinus Congestion Respiratory: Negative: Cough Neurological: Negative: Negative Physical Exam Triage Information Reviewed: Yes Appearance: Well-Appearing Vital Signs: Initial Vital Signs Temp 98 F 12/05/18 13:07 Pulse 71 12/05/18 13:07 Resp 16 12/05/18 13:07 BP 122/70 12/05/18 13:07 Pulse Ox 100 12/05/18 13:07 Vital Signs Reviewed: Yes Eyes: Positive: Conjunctiva Inflamed - L, Discharge - L CLEAR, Other: - L EYELID SWELLING, MILD REDNESS, MINIMAL TENDERNESS. NO PAIN W/ L EYE MOVEMENT. PERRLA BILAT. Dental: Positive: Other: - NO TEETH Respiratory Exam: Normal Cardiovascular Exam: Normal Neurological: Positive: Alert, Other: - NO FACIAL DROOPING, SYMMETRIC SMILE Psychological: Positive: Other: Skin: Negative: Rashes Eye Complaint Course/Dx - Course Course Of Treatment: L stye which worsened over the past 2-3 days. Pt feels the L eye lid is worsening, no vision changes. ON exam L lid was crusted, minimaly tender and little redness. Stye was present. vitals good. she also c/o of feeling like her L sided Castellanos's Palsy was becoming inflammed and painful, no exam no facial dropping. Was able to give a medrol dose pack for castellanos's palsy nerve pain and erythromycin for her mildly infected blepharitis but gave detailed instructions to return if the redness spreads. - Differential Dx/Diagnosis Differential Diagnosis/HQI/PQRI: Conjunctivitis, Periorbital Cellulitis, Orbital Cellulitis, Other Provider Diagnosis: Blepharitis of left eye Discharge - Sign-Out/Discharge Documenting (check all that apply): Patient Departure All imaging exams completed and their final reports reviewed: No Studies - Discharge Plan Condition: Good Disposition: HOME Prescriptions: Erythromycin OPTH OINT* [Erythromycin 0.5% OPTH OINT*] 1 applic LEFT EYE TID 10 Days #1 ophth.oint methylPREDNISolone [Medrol Dosepak 4 MG*] 0 mg PO .SEE QUAN INSTRUCTION #1 packet Patient Education Materials: Conjunctivitis (ED) Referrals: Ellen Tucker MD [Primary Care Provider] - Additional Instructions: Please take the medrol dose pack as instructed for the exacerbation of your castellanos 's palsy. If redness or swellign spreads you must return to get re-evaluated. - Billing Disposition and Condition Condition: GOOD Disposition: Home
== END 2018-12-05 13:55 | disposition home or self-care (01) ==
LOC: UCCORT 12:58
DX: H01.006 Unspecified blepharitis left eye, unspecified eyelid (principal); F17.210 Nicotine dependence, cigarettes, uncomplicated
CPT/HCPCS: 99212; G0463

== ENCOUNTER 2019-04-04 17:13 | Emergency (ER) | payer OTHER ==
[2019-04-04 18:16] VITALS: BP 113/75
[2019-04-04] MEDS ORDERED: Ibuprofen TAB* 600 MG PO ONE (19:41)
--- NOTE | 2019-04-04 19:42 | UC ---
Lower Extremity/Ankle HPI - HPI Summary HPI Summary: 33-year-old female comes in with a chief complaint of right foot pain. Started about 3 weeks ago. No specific injury. Pain is on the plantar aspect just anterior to the heel. Pain is worse with ambulation. Pain is better with rest. - History of Current Complaint Chief Complaint: UCLowerExtremity Stated Complaint: RIGHT FOOT PAIN Time Seen by Provider: 04/04/19 19:26 Hx Last Menstrual Period: 12/02/18 Pain Intensity: 7 - Allergies/Home Medications Allergies/Adverse Reactions: Allergies Allergy/AdvReac Type Severity Reaction Status Date / Time No Known Allergies Allergy Verified 04/04/19 18:13 PMH/Surg Hx/FS Hx/Imm Hx Previously Healthy: Yes Other History Of: Negative For: HIV, Hepatitis B, Hepatitis C - Surgical History Surgical History: Yes Surgery Procedure, Year, and Place: , 2018, [place]; , 2012, [place]; Right Oopherectomy, 2004 Other Surgical History: pilonidal cyst - Family History Known Family History: Positive: Hypertension, Diabetes Negative: Renal Disease, Blood Disorder - Social History Alcohol Use: None Substance Use Type: Marijuana Substance Use Comment - Amount & Last Used: Daily Smoking Status (MU): Heavy Every Day Tobacco Smoker Type: Cigarettes Amount Used/How Often: 1/2 PPD Length of Time of Smoking/Using Tobacco: Since Age 15 Have You Smoked in the Last Year: Yes Household Exposure Type: Cigarettes - Immunization History Most Recent Influenza Vaccination: 2019 Most Recent Tetanus Shot: 2019 Most Recent Pneumonia Vaccination: N/A Review of Systems All Other Systems Reviewed And Are Negative: Yes Constitutional: Positive: Negative Skin: Positive: Negative Eyes: Positive: Negative ENT: Positive: Negative Respiratory: Positive: Negative Cardiovascular: Positive: Negative Gastrointestinal: Positive: Negative Motor: Positive: Negative Neurovascular: Positive: Negative Musculoskeletal: Positive: Other: - see hpi Neurological: Positive: Negative Psychological: Positive: Negative Is Patient Immunocompromised?: No Physical Exam Triage Information Reviewed: Yes Appearance: Well-Appearing, Well-Nourished, Pain Distress - mild with rom and exam of rt foot Vital Signs: Initial Vital Signs Temp 97.9 F 04/04/19 18:11 Pulse 82 04/04/19 18:11 Resp 16 04/04/19 18:11 BP 113/75 04/04/19 18:11 Pulse Ox 100 04/04/19 18:11 Vital Signs Reviewed: Yes Eye Exam: Normal Eyes: Positive: Conjunctiva Clear Neck: Positive: Supple Respiratory: Positive: No respiratory distress Musculoskeletal: Positive: Other: - Patient is tender to palpation on the plantar aspect of the foot just anterior to the heel. Achilles tendon is intact ankle is nontender the rest the foot is nontender to palpation normal capillary refill. No sensation deficit. No rash erythema or ecchymosis. Neurological: Positive: Alert Psychological: Positive: Age Appropriate Behavior Skin Exam: Normal Lower Extremity Course/Dx - Course Course Of Treatment: I discussed the x-rays with the patient. Denies any fractures radiologist reading is pending. We'll treat for plantar fascitis with arch supports eyes anti-inflammatories. Patient was placed in a cam boot by nursing [facility] patient of as intact placement of a cam boot. Also given crutches for weightbearing as tolerated. Will follow-up with orthopedics or sports medicine. - Differential Dx/Diagnosis Provider Diagnosis: Right foot pain, Plantar fasciitis of right foot Discharge ED - Sign-Out/Discharge Documenting (check all that apply): Patient Departure All imaging exams completed and their final reports reviewed: No - Discharge Plan Condition: Stable Disposition: HOME Prescriptions: Ibuprofen TAB* [Motrin TAB* 600 MG] 600 mg PO Q8H PRN #30 tab PRN Reason: Pain - Moderate Patient Education Materials: Plantar Fasciitis Exercises (GEN), Plantar Fasciitis (ED) Referrals: Ellen Tucker MD [Primary Care Provider] - Mikel Miller MD [Medical Doctor] - [facility] [Provider Group] Additional Instructions: FOLLOW UP WITH DR MILLER, ORTHOPEDICS, OR SPORTS MEDICINE IF NOT COMPLETELY IMPROVED. Final radiologist reading of the x-ray is pending. If a fracture is seen we will contact you and you will need to follow-up with orthopedics. If the injury is not improved improved completely follow-up with orthopedics or sports medicine. GET RECHECKED SOONER IF WORSE OR ANY QUESTIONS OR CONCERNS. - Billing Disposition and Condition Condition: STABLE Disposition: Home
--- NOTE | 2019-04-05 07:33 | UC ---
- Progress Note Progress Note: xray report right foot : FINDINGS: The bones are in normal alignment. No fracture is seen. Joint spaces appear maintained. IMPRESSION: NO EVIDENCE FOR FRACTURE. Course/Dx - Diagnoses Provider Diagnoses: Right foot pain, Plantar fasciitis of right foot Discharge ED - Sign-Out/Discharge Documenting (check all that apply): Patient Departure All imaging exams completed and their final reports reviewed: Yes - Discharge Plan Condition: Stable Disposition: HOME Prescriptions: Ibuprofen TAB* [Motrin TAB* 600 MG] 600 mg PO Q8H PRN #30 tab PRN Reason: Pain - Moderate Patient Education Materials: Plantar Fasciitis Exercises (GEN), Plantar Fasciitis (ED) Referrals: [facility] [Provider Group] Ellen Tucker MD [Primary Care Provider] - Mikel Miller MD [Medical Doctor] - Additional Instructions: FOLLOW UP WITH DR MILLER, ORTHOPEDICS, OR SPORTS MEDICINE IF NOT COMPLETELY IMPROVED. Final radiologist reading of the x-ray is pending. If a fracture is seen we will contact you and you will need to follow-up with orthopedics. If the injury is not improved improved completely follow-up with orthopedics or sports medicine. GET RECHECKED SOONER IF WORSE OR ANY QUESTIONS OR CONCERNS. - Billing Disposition and Condition Condition: STABLE Disposition: Home
== END 2019-04-04 20:06 | disposition home or self-care (01) ==
LOC: UCCORT 17:13
DX: M72.2 Plantar fascial fibromatosis (principal); M25.571 Pain in right ankle and joints of right foot; F17.210 Nicotine dependence, cigarettes, uncomplicated
CPT/HCPCS: 99213; A9270-GY; G0463